=== PATIENT | male | born 1995 | race African-American/Black ===

== ENCOUNTER 2016-09-29 18:08 | Emergency (ER) | payer BC ==
[~2016-09-29] VITALS: Ht 170.2 cm; Wt 76.0 kg
[2016-09-29] MEDS ORDERED: FENTANYL CITRATE/PF 50MCG/ML 2ML VIAL IV ONE ×2 (18:15→19:00)
[2016-09-29 19:01] LABS: BASOPHILS % 0.7 % (0.0-2.0); EOSINOPHILS % 0.4 % (0.0-5.0); HEMATOCRIT. 41.1 % (42.0-52.0); HEMOGLOBIN. 13.5 g/dL (14.0-18.0); LYMPHOCYTES % 42.2 % (20.0-50.0); MEAN CORPUSCULAR HEMOGLOBIN 29.6 pg (28.0-32.0); MEAN CORPUSCULAR VOLUME 89.9 fL (80.0-94.0); MONOCYTES % 7.9 % (2.0-8.0); NEUTROPHILS % 48.8 % (40.0-76.0); PLATELET 171 x1000/uL (130-400); RED BLOOD CELL COUNT 4.57 mill/uL (4.7-6.1); RED CELL DISTRIBUTION WIDTH 13.9 % (11.6-14.6)
[2016-09-29 19:07] LABS: PROTHROMBIN TIME 10.7 sec
[2016-09-29 19:15] LABS: CARBON DIOXIDE 27 mEq/L (21-32); CHLORIDE 107 mEq/L (98-107)
[2016-09-29 23:05] VITALS: BP 136/86
== END 2016-09-29 23:37 | disposition short-term general hospital (02) ==
LOC: ER 18:08
DX: S51.032A Puncture wound without foreign body of left elbow, initial encounter (principal); F17.200 Nicotine dependence, unspecified, uncomplicated; F12.10 Cannabis abuse, uncomplicated; W34.00XA Accidental discharge from unspecified firearms or gun, initial encounter; Y93.01 Activity, walking, marching and hiking; Y92.410 Unspecified street and highway as the place of occurrence of the external cause; Y99.8 Other external cause status
CPT/HCPCS: 36415; 73060; 73080; 73090; 80053; 85025; 85610; 96374; 96376; 99285; J3010

== ENCOUNTER 2017-08-18 10:32 | Emergency (ER) | payer BC ==
[~2017-08-18] VITALS: Ht 170.2 cm; Wt 57.0 kg
[2017-08-18 10:41] VITALS: BP 114/57
== END 2017-08-18 14:20 | disposition home or self-care (01) ==
LOC: ER 14:19
DX: R11.2 Nausea with vomiting, unspecified (principal); Z98.890 Other specified postprocedural states
CPT/HCPCS: 99281

== ENCOUNTER 2019-12-28 22:14 | Emergency (ER) | payer BC ==
[~2019-12-28] VITALS: Ht 180.3 cm; Wt 59.0 kg
[2019-12-28] MEDS ORDERED: ACETAMINOPHEN WITH CODEINE 300/30MG TABLET PO ONE (23:30)
[2019-12-29 01:25] VITALS: BP 123/65
== END 2019-12-29 01:39 | disposition home or self-care (01) ==
LOC: ER 22:14
DX: S70.01XA Contusion of right hip, initial encounter (principal); S63.8X1A Sprain of other part of right wrist and hand, initial encounter; W18.39XA Other fall on same level, initial encounter; Y93.89 Activity, other specified; Y92.89 Other specified places as the place of occurrence of the external cause; Y99.8 Other external cause status; Z98.890 Other specified postprocedural states
CPT/HCPCS: 73130; 73502; 99284; Z7610

== ENCOUNTER 2022-02-28 11:03 | Emergency (ER) | payer BC ==
[~2022-02-28] VITALS: Ht 180.3 cm; Wt 76.0 kg
[2022-02-28 11:07] VITALS: BP 121/88
[2022-02-28] MEDS ORDERED: METRONIDAZOLE 500MG TABLET PO ONE (14:00)
[2022-02-28] MEDS ORDERED: ONDANSETRON 4MG ODT PO ONE (14:00)
== END 2022-02-28 14:17 | disposition home or self-care (01) ==
LOC: ER 11:22
DX: A59.9 Trichomoniasis, unspecified (principal); Z87.828 Personal history of other (healed) physical injury and trauma; Z98.890 Other specified postprocedural states
CPT/HCPCS: 99283; Q0162